=== PATIENT | male | born 1935 | race Caucasian/White ===

== ENCOUNTER 2018-10-28 05:42 | Inpatient (IN) | payer OTHER ==
[~2018-10-28] VITALS: Ht 162.6 cm; Wt 68.9 kg
[~2018-10-28 05:42] MED LIST: FUROSEMIDE20 MG PO; LISINOPRIL20 MG PO; METOPROLOL SUCC25 MG PO; PENTOXIFYLLINE 400 MG; PENTOXIFYLLINE400 MG PO; PLAVIX75 MG PO; POLY119PG PO; SIMVASTATIN20 MG PO
--- NOTE | 2018-10-28 05:51 | NUR ---
SE RECIBE PTE ALERTA Y ORIENTADO EN LAS 3 ESFERAS EN AMBULANCIA EN COMPANIA DE PARAMEDICOS. MASCULINO TRASLADADO DEL CDT DE TOA SIMEON POR CHARBEL SOSPECHA DE DVT EN PIERNA DERECHA. SE OBSERVA PIERNA DERECHA CON EDEMA Y ERITEMA. EVALUA Y ORDENA COLOCAR A PTE EN MONITOR CARDIACO. SE UBICA A PTE EN CAMA, SE CONECTA A MONITOR CARDIACO Y OXIMETRIA DE PULSO.
--- NOTE | 2018-10-28 06:04 | NUR ---
SE RECIBE PTE ALERTA Y ORIENTADO EN LAS 3 ESFERAS EN AMBULANCIA TRASLADADO DEL CDT DE TOA BAJA POR CHARBEL SOSPECHA DE DVT. PTE PRESENTA PIERNA DERECHA CON EDEMA Y ERITEMA. AL MOMENTO DE PARAMEDICOS TRANSFERIR AL PTE A LA CAMA, PTE SE QUEJA DE DIFICULTA RESPIRATORIA. EVALUA PTE Y ORDENA COLOCAR A PTE EN MONITOR CARDIACO Y OXIMETRIA DE PULSO. SE UBICA A PTE EN CAMA Y SE CONECTA A MONITOR CARDIACO.
--- NOTE | 2018-10-28 06:08 | NUR ---
PACIENTE ALERTA Y ORIENTADO POR JHONNY ESFERAS CON DIFICULTAD RESPIRATORIA. PACIENTE ES ORIENTADO SOBRE PROCEDIMEINTO Y TX, REFIERE ENTENDER. SE EXTRAE MUESTRAS DE LABORATOR CON MEDIDAS ASEPTICAS Y SE ADMINISTRA MEDICAMENTO TAJ ORDEN MEDICA. SE COMIENZA TRIDIL 50MG/250ML @ 3ML/HR. SE REALIZA EKG EL CUAL SE PRESENTA A DR. HARTMANN. PACIENTE CONECTADO A MONTITOR CARDIACO CON RITMO CARDIACO REGULAR. MS. ORTIZ INSERTA SONDA URINARIA CON MEDIDAS ASEPTICAS Y ESTERILES EL CUAL DRENA ORINA COLOR AMARILLO ADOLFO. SE NOTIFICA A MR. CORREIA ABG'S PENDIENTES. SE MANTIENE BAJO OBSERVACION POR CAMBIOS.
--- NOTE | 2018-10-28 07:01 | NUR ---
SE RECIBE PTE ALERTA Y ORIENTADO X3 EN HARPREET CON BARANDAS ELEVADAS. PTE SE OBSERVA EN MONITOR CARDIACO CON OXIMETRIA DE PULSO COLOCADA. PTE SE OBSERVA CON DRIP DE TRIDIL 50MG/250ML BAJANDO A 3ML/HR. PTE CON MCGOWAN COLOCADO BAJANDO A GRAVEDAD Y CN A 3 LTS. PTE EN ESPERA DE CONSULTA CON MEDICINA INTERNA. PTE SE CONTINUA MONITORIANDO POR CAMBIOS.
--- NOTE | 2018-10-28 07:59 | NUR ---
SE RECIBE PTE DE LA UNIDAD DE OBSERVACION SE ORIENTA PTE Y FAMILIAR SOBRE LA UNIDAD DE CHEST PAIN. CONECTADO A MONITOR CARDIACO, ALERTA, ORIENTADO POR JHONNY. SE LE REALIZA DEXTRO 92MGDL. CON IVFS PATENTE, EMANUEL DE EDEMA Y ERITEMA CON TRIDIL AT 3ML/HR. SE OBSERVA EXTREMIDAD INFERIOR DERECHA EDEMATOSA Y CON MUNON EN EXTREMIDAD INFERIOR IZQUIERDA. SE MANTIENE EN OBSERVACION.
--- NOTE | 2018-10-28 15:23 | NUR ---
SE RECIBE PTE EN LA UNIDAD DE CENTRO DE DOLOR DE PECHO EN EL CUBICULO #17 EN CAMA CON BARANDAS ELEVADA TIMBRE ACCESIBLE PTE ALERTA Y CONCIENTE POR 3 NO PRESENTA DOLOR AL MOMENTO, SE OBSERVA VENOPUNCION EN EL BRAZO ANA BAJANDO TRIDIL@3ML/HR PTE EN COMPANIA DE RAMIREZ FAMILIAR CONECTADO A MONITOR CARDIACO Y OXYMETRIA DE PULSO, MCGOWANKAT PULLIAMNANDO ORIENA DE COLOR AMARILLO PTE SE MANTIENE EN OBSERVACION Y BAJO TRATAMIENTO EN ESPERA DEL DR HAN
== END 2018-11-03 15:25 | disposition home or self-care (01) | DRG 292 ==
LOC: ER 05:42 → SEC-K 17:43 → MEDJ 17:43
PROVIDERS: ADMIT Internal Medicine Cardiovascular Disease
PROC: 4A033R1 Measurement of Arterial Saturation, Peripheral, Percutaneous Approach (ICD-10-PCS; principal; 2018-10-28)
PROC: 3E0F7GC Introduction of Other Therapeutic Substance into Respiratory Tract, Via Natural or Artificial Opening (ICD-10-PCS; 2018-10-28)
PROC: B246ZZZ Ultrasonography of Right and Left Heart (ICD-10-PCS; 2018-10-28)
PROC: B44HZZZ Ultrasonography of Bilateral Lower Extremity Arteries (ICD-10-PCS; 2018-10-28)
PROC: B54DZZZ Ultrasonography of Bilateral Lower Extremity Veins (ICD-10-PCS; 2018-10-28)
PROC: 4A02XM4 Measurement of Cardiac Total Activity, External Approach (ICD-10-PCS; 2018-10-31)
PROC: 3E073KZ Introduction of Other Diagnostic Substance into Coronary Artery, Percutaneous Approach (ICD-10-PCS; 2018-10-31)
DX: I13.0 Hypertensive heart and chronic kidney disease with heart failure and stage 1 through stage 4 chronic kidney disease, or unspecified chronic kidney disease (principal); I50.22 Chronic systolic (congestive) heart failure; I24.8 Other forms of acute ischemic heart disease; B37.49 Other urogenital candidiasis; R60.0 Localized edema; B95.61 Methicillin susceptible Staphylococcus aureus infection as the cause of diseases classified elsewhere; N18.9 Chronic kidney disease, unspecified

== ENCOUNTER 2019-01-05 03:14 | Inpatient (IN) | payer OTHER ==
[~2019-01-05] VITALS: Ht 167.6 cm; Wt 65.8 kg
[2019-01-05] MEDS ORDERED: LIPITOR20 MG PO (03:46)
[2019-01-05] MEDS ORDERED: ISOSORBIDE MONO30 MG (03:46)
[2019-01-05] MEDS ORDERED: VASOTEC2.5 MG PO (03:46)
[2019-01-05] MEDS ORDERED: ALDACTONE25 MG PO (03:47)
[2019-01-05] MEDS ORDERED: CARVEDILOL6.25 MG PO (03:47)
[2019-01-12] MEDS ORDERED: CLOPIDOGREL BIS75 MG PO (08:14)
[2019-01-12] MEDS ORDERED: LIPITOR20 MG PO (08:14)
[2019-01-12] MEDS ORDERED: CARVEDILOL3.125 MG PO (08:14)
[2019-01-12] MEDS ORDERED: VASOTEC2.5 MG PO (08:15)
[2019-01-12] MEDS ORDERED: LEVAQUIN500 MG PO (08:16)
[2019-01-12] MEDS ORDERED: ISOSORBIDE MONO30 MG PO (08:16)
== END 2019-01-13 14:37 | disposition home or self-care (01) | DRG 280 ==
LOC: ER 03:14 → ICU-2 13:01 → ICU 01-09 03:20 → MEDJ 01-10 18:02
PROVIDERS: ADMIT Internal Medicine
PROC: B246ZZZ Ultrasonography of Right and Left Heart (ICD-10-PCS; principal; 2019-01-05)
PROC: 4A033R1 Measurement of Arterial Saturation, Peripheral, Percutaneous Approach (ICD-10-PCS; 2019-01-05)
PROC: 4A12X4Z Monitoring of Cardiac Electrical Activity, External Approach (ICD-10-PCS; 2019-01-05)
DX: I21.4 Non-ST elevation (NSTEMI) myocardial infarction (principal); I50.23 Acute on chronic systolic (congestive) heart failure; I13.0 Hypertensive heart and chronic kidney disease with heart failure and stage 1 through stage 4 chronic kidney disease, or unspecified chronic kidney disease; J90 Pleural effusion, not elsewhere classified; I08.0 Rheumatic disorders of both mitral and aortic valves; N18.3 Chronic kidney disease, stage 3 (moderate); E13.22 Other specified diabetes mellitus with diabetic chronic kidney disease; Z79.4 Long term (current) use of insulin

== ENCOUNTER 2019-01-23 22:47 | Emergency (ER) | payer OTHER ==
[~2019-01-23] VITALS: Ht 162.6 cm; Wt 68.9 kg
[~2019-01-23 22:47] MED LIST changes: +ALDACTONE25 MG PO; +CARVEDILOL3.125 MG PO; +CARVEDILOL6.25 MG PO; +CLOPIDOGREL BIS75 MG PO; +ISOSORBIDE MONO30 MG; +ISOSORBIDE MONO30 MG PO; +LEVAQUIN500 MG PO; +LIPITOR20 MG PO; +VASOTEC2.5 MG PO
== END 2019-01-24 19:48 | disposition home or self-care (01) ==
LOC: ER 22:47 → CPU-OBS 23:16 → ER 01-24 19:48
DX: Z45.02 Encounter for adjustment and management of automatic implantable cardiac defibrillator (principal); I13.0 Hypertensive heart and chronic kidney disease with heart failure and stage 1 through stage 4 chronic kidney disease, or unspecified chronic kidney disease; N18.3 Chronic kidney disease, stage 3 (moderate); I50.42 Chronic combined systolic (congestive) and diastolic (congestive) heart failure; I21.4 Non-ST elevation (NSTEMI) myocardial infarction; J81.1 Chronic pulmonary edema; J91.8 Pleural effusion in other conditions classified elsewhere; I25.10 Atherosclerotic heart disease of native coronary artery without angina pectoris; E13.9 Other specified diabetes mellitus without complications; K56.699 Other intestinal obstruction unspecified as to partial versus complete obstruction; R19.7 Diarrhea, unspecified; Z85.038 Personal history of other malignant neoplasm of large intestine

== ENCOUNTER 2019-01-26 09:26 | Emergency (ER) | payer OTHER ==
[~2019-01-26] VITALS: Ht 162.6 cm; Wt 64.0 kg
== END 2019-01-28 12:49 | disposition designated cancer center or children's hospital (05) ==
LOC: ER 09:26 → CPU-OBS 09:54
DX: I42.8 Other cardiomyopathies (principal); R07.89 Other chest pain; E11.65 Type 2 diabetes mellitus with hyperglycemia; T82.897A Other specified complication of cardiac prosthetic devices, implants and grafts, initial encounter; Z95.810 Presence of automatic (implantable) cardiac defibrillator

== ENCOUNTER 2019-02-04 15:47 | Inpatient (IN) | payer OTHER ==
[~2019-02-04] VITALS: Ht 162.6 cm; Wt 64.0 kg
[2019-02-04] MEDS ORDERED: DOXYCYCLINE HYC50 M2 (18:10)
== END 2019-02-08 16:23 | disposition expired ==
LOC: ER 15:47 → MEDJ 02-06 10:44
PROVIDERS: ADMIT Internal Medicine Cardiovascular Disease
PROC: 4A12X4Z Monitoring of Cardiac Electrical Activity, External Approach (ICD-10-PCS; principal; 2019-02-06)
PROC: 3E0F7GC Introduction of Other Therapeutic Substance into Respiratory Tract, Via Natural or Artificial Opening (ICD-10-PCS; 2019-02-06)
PROC: 0T9B70Z Drainage of Bladder with Drainage Device, Via Natural or Artificial Opening (ICD-10-PCS; 2019-02-06)
PROC: 4A033R1 Measurement of Arterial Saturation, Peripheral, Percutaneous Approach (ICD-10-PCS; 2019-02-08)
DX: I13.0 Hypertensive heart and chronic kidney disease with heart failure and stage 1 through stage 4 chronic kidney disease, or unspecified chronic kidney disease (principal); I50.23 Acute on chronic systolic (congestive) heart failure; I21.A1 Myocardial infarction type 2; J90 Pleural effusion, not elsewhere classified; N17.8 Other acute kidney failure; I25.810 Atherosclerosis of coronary artery bypass graft(s) without angina pectoris; J44.1 Chronic obstructive pulmonary disease with (acute) exacerbation; J45.41 Moderate persistent asthma with (acute) exacerbation; K63.89 Other specified diseases of intestine; K40.90 Unilateral inguinal hernia, without obstruction or gangrene, not specified as recurrent; N18.3 Chronic kidney disease, stage 3 (moderate); E11.22 Type 2 diabetes mellitus with diabetic chronic kidney disease; E11.65 Type 2 diabetes mellitus with hyperglycemia; Z79.4 Long term (current) use of insulin; N39.8 Other specified disorders of urinary system